=== PATIENT | female | born 1980 | race Caucasian/White ===

== ENCOUNTER → 2016-10-02 | Outpatient (CLI) | payer OTHER | LOC: FIMAGING 13:49 | PROVIDERS: ATTEND Registered Nurse | DX: O99.611 Diseases of the digestive system complicating pregnancy, first trimester (principal); O09.511 Supervision of elderly primigravida, first trimester; K51.90 Ulcerative colitis, unspecified, without complications; Z3A.13 13 weeks gestation of pregnancy ==

== ENCOUNTER → 2016-11-22 | Outpatient (CLI) | payer OTHER | LOC: FIMAGING 11:38 | PROVIDERS: ATTEND Registered Nurse | DX: O09.512 Supervision of elderly primigravida, second trimester (principal); K51.90 Ulcerative colitis, unspecified, without complications; Z3A.20 20 weeks gestation of pregnancy ==

== ENCOUNTER → 2017-01-03 | Outpatient (CLI) | payer OTHER | LOC: FIMAGING 13:54 | PROVIDERS: ATTEND Registered Nurse | DX: O09.512 Supervision of elderly primigravida, second trimester (principal); K51.90 Ulcerative colitis, unspecified, without complications; O99.612 Diseases of the digestive system complicating pregnancy, second trimester; Z3A.27 27 weeks gestation of pregnancy ==

== ENCOUNTER → 2017-02-14 | Outpatient (CLI) | payer OTHER | LOC: FIMAGING 09:35 | PROVIDERS: ATTEND Registered Nurse | DX: O09.523 Supervision of elderly multigravida, third trimester (principal); K51.90 Ulcerative colitis, unspecified, without complications; Z3A.32 32 weeks gestation of pregnancy ==

== ENCOUNTER → 2017-03-14 | Outpatient (CLI) | payer OTHER | LOC: FIMAGING 09:32 | PROVIDERS: ATTEND Registered Nurse | DX: O09.513 Supervision of elderly primigravida, third trimester (principal); Z3A.36 36 weeks gestation of pregnancy ==